=== PATIENT | male | born 1995 | race Caucasian/White ===

== ENCOUNTER → 2016-10-09 | Emergency (ER) | payer OTHER ==
[~2016-10-09] VITALS: Ht 175.3 cm; Wt 93.9 kg
[~2016-10-09] MED LIST: BENTYL10 MG PO; NAPROSYN500 MG PO; ZOFRAN4 MG PO
[2016-10-09 23:12] LABS: EOSINOPHIL (%) 0.7 % (0-5); EOSINOPHIL COUNT 0.1 K/uL (0-0.3); HEMATOCRIT 48.9 % (38.0-50.0); IMMATURE GRANULOCYTE (%) 0.4 % (0.0-0.7); IMMATURE GRANULOCYTE COUNT 0.1 K/uL; INSTRUMENT ABS NEUTROPHIL CT 14.3 K/uL; LYMPHOCYTE COUNT 0.9 K/uL (1.0-2.8); MCH 29.6 PG (29.0-34.0); MCHC 34.4 G/DL (30.0-36.0); MCV 86.1 FL (86-99); MONOCYTE (%) 5.9 % (3-12); NEUTROPHIL (%) 87.4 % (45-76); NEUTROPHIL COUNT 14.3 K/uL (1.8-6.4); PLATELET COUNT 267 K/uL (156-360); RBC DIS.WIDTH-CV 11.9 % (11.8-14.6); RBC DIS.WIDTH-SD 37.4 % (39-53); RED BLOOD COUNT 5.68 M/uL (4.00-5.50); WHITE BLOOD COUNT 16.4 K/uL (4.1-10.2)
[2016-10-09 23:32] LABS: CHLORIDE 107 mEq/L (99-109); POTASSIUM 4.2 mEq/L (3.7-5.4); SODIUM 138 mEq/L (136-147)
[2016-10-09 23:35] LABS: ANION GAP 11 MEQ/L (2-14)
[2016-10-09 23:36] LABS: TOTAL BILIRUBIN 0.9 mg/dL (0.0-1.0)
[2016-10-09 23:37] LABS: ALKALINE PHOSPHATASE 109 IU/L (3-129)
[2016-10-09 23:38] LABS: GFR ESTIMATE (CALCULATED) > 59 mL/min/
[2016-10-09 23:39] LABS: UREA NITROGEN (BUN) 13 mg/dL (9-23)
[2016-10-09 23:41] LABS: LIPASE 14 U/L (1.0-51.0)
[2016-10-10 00:32] LABS: ADD MIUA? YES; BILIRUBIN NEGATIVE; BLOOD NEGATIVE; COLOR YELLOW ((YELLOW)); GLUCOSE (STRIP) NEGATIVE; KETONES NEGATIVE; LEUKOCYTES NEGATIVE; NITRITE NEGATIVE; PROTEIN (STRIP) 30; SPECIFIC GRAVITY 1.017 (1.000-1.030); UROBILINOGEN 0.2 MG/DL (0.2-1.0)
[2016-10-10 00:36] LABS: BACTERIA RARE /HPF; EPITHELIAL CELLS NONE SEEN /HPF; MUCUS TRACE /LPF; RED BLOOD CELLS 0-5 /HPF (0-5); UCUL ADDED? NO; WHITE BLOOD CELLS 0-5 /HPF (0-5)
[2016-10-10 01:03] LABS: GLUCOSE 93 mg/dL (70-99)
[2016-10-10 01:20] VITALS: BP 128/80
== END | disposition home or self-care (01) ==
LOC: EME 22:21
PROVIDERS: Emergency Medicine
DX: K52.9 Noninfective gastroenteritis and colitis, unspecified (principal)
CPT/HCPCS: 74177; 80053; 81003; 83690; 85025; 99281; 99284; J0500; J2405; J7030

== ENCOUNTER 2017-08-04 09:24 | Emergency (ER) | payer OTHER ==
[~2017-08-04] VITALS: Ht 175.3 cm; Wt 98.1 kg
[2017-08-04 11:13] LABS: HEMATOCRIT 43.5 % (38.0-50.0); HEMOGLOBIN 15.7 G/DL (12.5-16.6); MCHC 36.1 G/DL (30.0-36.0); MCV 85.8 FL (86-99); PLATELET COUNT 228 K/uL (156-360); RBC DIS.WIDTH-CV 11.9 % (11.8-14.6); RBC DIS.WIDTH-SD 37.1 % (39-53); RED BLOOD COUNT 5.07 M/uL (4.00-5.50); WHITE BLOOD COUNT 11.8 K/uL (4.1-10.2)
[2017-08-04 11:22] LABS: CHLORIDE 107 mEq/L (99-109); POTASSIUM 4.1 mEq/L (3.7-5.4); SODIUM 139 mEq/L (136-147)
[2017-08-04 11:23] LABS: GLUCOSE 101 mg/dL (70-99)
[2017-08-04 11:27] LABS: CREATININE 1.3 mg/dL (0.6-1.3); GFR ESTIMATE (CALCULATED) > 59 mL/min/ (58.99-99999)
[2017-08-04 11:28] LABS: UREA NITROGEN (BUN) 9 mg/dL (9-23)
[2017-08-04 12:44] VITALS: BP 148/74
== END 2017-08-04 12:45 | disposition home or self-care (01) ==
LOC: EME 09:24
PROVIDERS: Family Medicine
DX: B34.9 Viral infection, unspecified (principal); R05 Cough; H92.02 Otalgia, left ear; J02.9 Acute pharyngitis, unspecified; R00.0 Tachycardia, unspecified
CPT/HCPCS: 71046; 80048; 85027; 87502; 87651 90; 99281; 99285; J7040